=== PATIENT | female | born 1985 | race Caucasian/White ===

== ENCOUNTER 2020-03-24 04:42 | Inpatient (IN) | payer OTHER ==
[~2020-03-24] VITALS: Ht 162.6 cm; Wt 90.7 kg
[2020-03-24] MEDS ORDERED: HYDROXYZINE PAM25 MG PO (05:59)
[2020-03-24] MEDS ORDERED: GABAPENTIN300 MG PO (06:02)
[2020-03-24 06:18] LABS: RED BLOOD COUNT 4.34 M/UL (4.00-5.10); WHITE BLOOD COUNT 16.9 K/UL (4.5-11.0)
[2020-03-25 06:53] LABS: HEMOGLOBIN 10.4 gm/dl (12.3-15.3)
[2020-03-27] MEDS ORDERED: IBUPROFEN800 MG PO (10:55)
[2020-03-27] MEDS ORDERED: PERCOCET 5/325 T1 EA PO (10:55)
[2020-03-27] MEDS ORDERED: COLACE 100MG C100 MG PO (10:55)
== END 2020-03-27 15:40 | disposition home or self-care (01) | DRG 787 ==
LOC: GENOP 04:42 → OB 06:00
PROVIDERS: Obstetrics & Gynecology; ADMIT Obstetrics & Gynecology
PROC: 10D00Z1 Extraction of Products of Conception, Low, Open Approach (ICD-10-PCS; principal; 2020-03-24 06:37)
PROC: 3E0234Z Introduction of Serum, Toxoid and Vaccine into Muscle, Percutaneous Approach (ICD-10-PCS; 2020-03-26)
DX: O34.211 Maternal care for low transverse scar from previous cesarean delivery (principal); O99.324 Drug use complicating childbirth; Z20.822 Contact with and (suspected) exposure to COVID-19; N85.8 Other specified noninflammatory disorders of uterus; Z3A.37 37 weeks gestation of pregnancy; Z37.0 Single live birth; O77.0 Labor and delivery complicated by meconium in amniotic fluid; F12.90 Cannabis use, unspecified, uncomplicated; O99.334 Smoking (tobacco) complicating childbirth; F17.210 Nicotine dependence, cigarettes, uncomplicated; O99.344 Other mental disorders complicating childbirth; F41.9 Anxiety disorder, unspecified; F32.9 Major depressive disorder, single episode, unspecified; Z23 Encounter for immunization
CPT/HCPCS: 36415; 80307; 81001; 82800; 85014; 85018; 85025; 87635; 90715; C9113; G0009; J0690; J1200; J1885; J2274; J2300; J2590; J3010; J7120